=== PATIENT | female | born 1975 | race Native Hawaiian/Other Pacific Islander ===

== ENCOUNTER 2018-12-21 10:30 | Outpatient (CLI) | payer BC ==
[2018-12-21 11:12] LABS: PLATELET COUNT 241 K/uL (152-353)
[2018-12-21 11:16] LABS: POTASSIUM 4.5 mmol/L (3.6-5.2)
== END 2018-12-21 23:46 | disposition home or self-care (01) ==
LOC: LABW 10:30
PROVIDERS: Plastic Surgery
DX: Z01.812 Encounter for preprocedural laboratory examination (principal); Z01.818 Encounter for other preprocedural examination; Z01.810 Encounter for preprocedural cardiovascular examination
CPT/HCPCS: 36415; 80048; 85027; 93005

== ENCOUNTER 2020-02-13 12:31 | Outpatient (CLI) | payer BC | END 2020-02-14 00:02 | disposition home or self-care (01) | LOC: LABW 12:31 | DX: R53.83 Other fatigue (principal) | CPT/HCPCS: 36415; 84481 ==

== ENCOUNTER 2020-04-23 11:22 | Outpatient (CLI) | payer BC | END 2020-04-23 19:49 | disposition home or self-care (01) | LOC: LABW 11:22 | DX: R68.82 Decreased libido (principal); N95.1 Menopausal and female climacteric states; R53.83 Other fatigue; E55.9 Vitamin D deficiency, unspecified | CPT/HCPCS: 36415; 82306; 82626; 82670; 83001; 84144; 84402; 84481 ==

== ENCOUNTER 2020-10-21 04:39 | Outpatient (CLI) | payer BC ==
[2020-10-21 05:27] LABS: PLATELET COUNT 237 K/uL (152-353)
[2020-10-21 07:22] LABS: POTASSIUM 3.8 mmol/L (3.6-5.2)
== END 2020-10-21 21:54 | disposition home or self-care (01) ==
LOC: LABW 04:39
DX: R68.82 Decreased libido (principal); R53.83 Other fatigue; Z13.220 Encounter for screening for lipoid disorders; R63.5 Abnormal weight gain; N95.1 Menopausal and female climacteric states; E55.9 Vitamin D deficiency, unspecified
CPT/HCPCS: 36415; 80053; 80061; 82306; 82607; 82626; 82670; 83036; 84144; 84402; 84439; 84443; 84481; 85027

== ENCOUNTER 2020-11-13 11:20 | Outpatient (CLI) | payer BC | END 2020-11-13 22:48 | disposition home or self-care (01) | LOC: LABW 11:20 | DX: N95.1 Menopausal and female climacteric states (principal) | CPT/HCPCS: 36415; 83001 ==